=== PATIENT | male | born 1935 | race Caucasian/White ===

== ENCOUNTER → 2016-12-01 | Outpatient (CLI) | payer MEDICARE ==
--- NOTE | 2016-12-01 09:28 | US ---
EXAMINATION TYPE: US carotid duplex BILAT DATE OF EXAM: 12/01/2016 COMPARISON: NONE CLINICAL HISTORY: syncope R55.0. EXAM MEASUREMENTS: RIGHT: Peak Systolic Velocity (PSV) cm/sec ----- Right CCA: 74.7 ----- Right ICA: 66.9 ----- Right ECA: 108.3 ICA/CCA ratio: 0.9 RIGHT: End Diastole cm/sec ----- Right CCA: 10.1 ----- Right ICA: 15.4 ----- Right ECA: 6.0 LEFT: Peak Systolic Velocity (PSV) cm/sec ----- Left CCA: 69.5 ----- Left ICA: 100.9 ----- Left ECA: 109.6 ICA/CCA ratio: 1.5 LEFT: End Diastole cm/sec ----- Left CCA: 12.7 ----- Left ICA: 23.8 ----- Left ECA: 7.3 VERTEBRALS (direction of flow): Right Vertebral: Antegrade Left Vertebral: Antegrade IMPRESSION: Heterogeneous plaque bilaterally, mostly located within bulbs No significant stenosis se en Criteria for Assigning % of Stenosis / Diameter reduction (Estimation based on the indirect measurements of the internal carotid artery velocities (ICA PSV). 1. Normal (no stenosis)=ICA PSV < 125 cm/s: ratio < 2.0: ICA EDV<40 cm/s. 2. Less than 50% stenosis=ICA PSV < 125 cm/s: ratio < 2.0: ICA EDV<40 cm/s. 3. 50 to 69% stenosis=ICA PSV of 125 to 230 cm/s: ration 2.0 ? 4.0: ICA EDV 40-100 cm/s. 4. Greater than 70% stenosis to near occlusion= ICA PSV > 230 cm/s: ratio > 4.0: ICA EDV > 100 cm/s. 5. Near occlusion= ICA PSV velocities may be low or undetectable: variable ratio and ICA EDV. 6. Total occlusion=unable to detect flow.
== END | disposition home or self-care (01) ==
LOC: RADUSWWP 08:46
PROVIDERS: ATTEND Family Medicine
DX: I65.23 Occlusion and stenosis of bilateral carotid arteries (principal)
CPT/HCPCS: 93880

== ENCOUNTER → 2018-02-19 | Outpatient (CLI) | payer MEDICARE ==
--- NOTE | 2018-02-19 19:17 | US ---
EXAMINATION TYPE: US venous doppler duplex LE RT DATE OF EXAM: 02/19/2018 6:31 PM COMPARISON: NONE CLINICAL HISTORY: Pain In Limb M25.561. Right leg pain. SIDE PERFORMED: Right TECHNIQUE: The lower extremity deep venous system is examined utilizing real time linear array sonog josette with graded compression, doppler sonography and color-flow sonography. VESSELS IMAGED: External Iliac Vein (EIV) Common Femoral Vein Deep Femoral Vein Greater Saphenous Vein * Femoral Vein Popliteal Vein Small Saphenous Vein * Proximal Calf Veins (* superficial vessels) Right Leg: Negative for DVT No evidence of DVT right leg. IMPRESSION: Normal exam. No evidence of deep venous thrombosis in the right leg.
== END ==
LOC: RADUSMAIN 16:32
PROVIDERS: ATTEND Orthopaedic Surgery Sports Medicine
DX: M25.561 Pain in right knee (principal); M79.604 Pain in right leg

== ENCOUNTER 2021-09-02 16:02 | Emergency (ER) | payer MEDICARE ==
[2021-09-02 16:10] VITALS: PULSE 66; RESP 18; TEMP 98.6
[2021-09-02] MEDS ORDERED: SODIUM CHLORIDE 0.9% 500 ML 500 ML IV STA (16:22)
[2021-09-02 16:37] LABS: Basophils % (A) 1 %; Eosinophils # (A) 0.2 k/uL (0-0.7); Eosinophils % (A) 3 %; HCT 46.8 % (39.0-53.0); HGB 16.2 gm/dL (13.0-17.5); Lymphocytes % (A) 37 %; MCH 31.8 pg (25.0-35.0); MCHC 34.7 g/dL (31.0-37.0); MCV 91.5 fL (80.0-100.0); Monocytes # (A) 0.5 k/uL (0-1.0); Monocytes % (A) 6 %; Neutrophils # (A) 4.2 k/uL (1.3-7.7); Neutrophils % (A) 51 %; Platelet Count 233 k/uL (150-450); RBC 5.11 m/uL (4.30-5.90); RDW 13.5 % (11.5-15.5); WBC 8.3 k/uL (3.8-10.6)
[2021-09-02 16:48] LABS: Albumin 4.3 g/dL (3.5-5.0); Calcium 9.2 mg/dL (8.4-10.2); Potassium 3.9 mmol/L (3.5-5.1); Total Bilirubin 1.3 mg/dL (0.2-1.3); Total Protein 7.2 g/dL (6.3-8.2)
[2021-09-02 16:53] LABS: Prothrombin Time 10.7 sec (9.0-12.0)
--- NOTE | 2021-09-02 16:59 | CT ---
EXAMINATION TYPE: CT brain wo con for TPA CT DLP: 1093.8 mGycm, Automated exposure control for dose reduction was used. DATE OF EXAM: 09/02/2021 4:40 PM COMPARISON:Prior CT Brain from 05/31/2016. CLINICAL INDICATION:Male, 85 years old with history of Neuro deficit, acute, stroke suspected, Diffic ulty with speech. TECHNIQUE: Brain: Multiple axial CT images of the brain were obtained without IV contrast. FINDINGS: Brain: Extra-axial spaces: No abnormal extra-axial fluid collections. Ventricular system: Dilatation in proportion to cerebral atrophy. Cerebral parenchyma: New rounded area of high density in the left magdalena is not seen in 2016. Area soledad ures 8 x 4 x 6 mm No acute intraparenchymal hemorrhage or mass effect. The rodrigues-white junction is we ll differentiated. Scattered hypoattenuating areas are seen within the white matter. Cerebellum: Unremarkable. Mass effect: No evidence of midline shift. Intracranial vasculature: Atherosclerotic calcifications of the intracranial vessels. Soft tissues: Normal. Calvarium/osseous structures: No depressed skull fracture. Paranasal sinuses and mastoid air cells: Mild scattered paranasal sinus disease. Visualized orbits: Bilateral aphakia IMPRESSION: 1. New from 2016, hyperdense area within the left magdalena concerning for intraparenchymal hemorrhage. 2. Nonspecific white matter changes, likely secondary to chronic small vessel ischemic disease.
--- NOTE | 2021-09-02 17:16 | CT ---
EXAMINATION TYPE: CT angio head neck CT DLP: 560.2 mGycm, Automated exposure control for dose reduction was used. DATE OF EXAM: 09/02/2021 5:04 PM COMPARISON: CT brain same day. CLINICAL INDICATION:Male, 85 years old with history of Neuro deficit, acute, stroke suspected, Diffic ulty with speech. TECHNIQUE: Axially acquired helical CT angiogram of the head and neck was obtained with contrast util izing 6125 cc of Isovue-370 administered intravenously. Axial images are supplemented with 3D reconst ructions which were post-processed at an independent workstation. NASCET criteria used. FINDINGS: CTA HEAD: Redemonstration of hyperdense presumably blood products within the within the left magdalena. No evidence of mass effect, or midline shift. The ventricles, sulci, and cisterns are unremarkable. The visualized portions of the internal carotid arteries, middle cerebral arteries, anterior cerebral arteries, and posterior cerebral arteries are patent. The basilar and vertebral arteries are patent. CTA NECK: Right Carotid System: The common carotid artery and external carotid artery are patent. The carotid bifurcation demonstrate s atherosclerotic plaquing with less than 50% stenosis. The remaining portions of the internal caroti d artery demonstrate normal size without significant narrowing. Left Carotid System: The common carotid artery and external carotid artery are patent. The carotid bifurcation demonstrate s atherosclerotic plaquing with less than 50% stenosis. The remaining portions of the internal caroti d artery demonstrate normal size without significant narrowing. Vertebral arteries are patent without evidence hemodynamically significant stenosis. There is a three-vessel aortic arch. The origins of the great vessels are patent. No evidence of hemo dynamically significant stenosis. Sternotomy wires are present. There is vascular stent tubing noted anterior to the aorta without clear vessel. Cardiac conduction IMPRESSION: 1. No evidence of dissection of the cervical internal carotid arteries or vertebral arteries or any e vidence of significant stenosis at the carotid bifurcations. 2. No evidence of high-grade stenosis or intracranial aneurysm. 3. Left magdalena hyperdense area favored to represent intraparenchymal hemorrhage, new from 2016.
--- NOTE | 2021-09-02 17:57 | ED ---
General Adult HPI - General Chief complaint: Neuro Symptoms/Deficit Stated complaint: Slurred speech Time Seen by Provider: 09/02/21 16:14 Source: patient, RN notes reviewed, old records reviewed Mode of arrival: ambulatory Limitations: no limitations - History of Present Illness Initial comments: 85-year-old male presenting for evaluation of slurred speech. His symptoms began yesterday evening around dinnertime. He is presenting at approximately 4 PM. This represents 22-23 hour duration. Patient states have improved throughout the day today. He denies headache. He denies limb weakness or numbness. No chest pain. No fever. - Related Data Home Medications Medication Instructions Recorded Confirmed Finasteride 5 mg PO DAILY 08/13/15 09/02/21 Multivit-Min/FA/Lycopen/Lutein 1 tab PO DAILY 08/13/15 09/02/21 [Centrum Silver Tablet] Nitroglycerin Sl Tabs [Nitrostat] 0.4 mg SUBLINGUAL Q5M PRN 08/13/15 09/02/21 Rosuvastatin [Crestor] 20 mg PO HS 08/13/15 09/02/21 Tamsulosin HCl 0.4 mg PO HS 08/13/15 09/02/21 Clopidogrel [Plavix] 75 mg PO DAILY 05/31/16 09/02/21 Metoprolol Tartrate [Lopressor] 12.5 mg PO HS 05/31/16 09/02/21 Albuterol Inhaler [Ventolin Hfa 2 puff INHALATION RT-QID PRN 09/02/21 09/02/21 Inhaler] Diclofenac Sodium [Voltaren 4 gram TOPICAL QID PRN 09/02/21 09/02/21 Arthritis Pain 1% Gel] Donepezil [Aricept] 5 mg PO DAILY 09/02/21 09/02/21 Ipratropium [place] 0.06%Nasal 2 spr EA NOSTRIL TID PRN 09/02/21 09/02/21 [Atrovent Nasal 0.06%] Pantoprazole Sodium [Protonix] 40 mg PO HS 09/02/21 09/02/21 Allergies Allergy/AdvReac Type Severity Reaction Status Date / Time amoxicillin Allergy Rash/Hives Verified 09/02/21 17:53 Penicillins Allergy Rash/Hives Verified 09/02/21 17:53 Review of Systems ROS Statement: Those systems with pertinent positive or pertinent negative responses have been documented in the HPI. ROS Other: All systems not noted in ROS Statement are negative. Past Medical History Past Medical History: Coronary Artery Disease (CAD), Chest Pain / Angina, Dementia, GERD/Reflux, Hearing Disorder / Deafness, Hyperlipidemia, Hypertension, Osteoarthritis (OA), Prostate Disorder Additional Past Medical History / Comment(s): Other Hx: pericardial effusion, memry impairment mild, vertigo, tinnitis bilateral ears, sinus problems, hemorrhoids, peptic ulcer yrs ago, chronic low back pain and current sciatica to L side. History of Any Multi-Drug Resistant Organisms: None Reported Past Surgical History: Coronary Bypass/CABG, Heart Catheterization With Stent, Hernia Repair, Orthopedic Surgery, Tonsillectomy Additional Past Surgical History / Comment(s): 08-14-15 HEART CATH(FOUND OCCLUS CHANDU TO OM1 INTO OM2 AND DIAG.UNSUCCESSFULL ATTEMP TO STENT 07/17/12 CABG 4 vessel bypass(SIERRA TO LAD,SVG TO OM1 INTO OM2 AND SVG TO DIAG, 08/2012 PCI with stent per pt, right shoulder rotator cuff repair, R inguinal hernia repair, R foot bunionectomy, bilateral cataract removal with lens implants. atherectomy Past Anesthesia/Blood Transfusion Reactions: No Reported Reaction, Motion Sickness Date of Last Stent Placement:: 08/2012 Past Psychological History: No Psychological Hx Reported Smoking Status: Never smoker Past Alcohol Use History: Occasional Past Drug Use History: None Reported - Past Family History Father Family Medical History: No Reported History Additional Family Medical History / Comment(s): Pt states his father in his 80's and was a heavy smoker and heavy drinker. Mother Family Medical History: Osteoarthritis (OA), Pulmonary Embolus Additional Family Medical History / Comment(s): Mother had severe arthritis and of a PE at age 61yrs. General Exam Limitations: no limitations General appearance: alert, in no apparent distress Head exam: Present: atraumatic, normocephalic Eye exam: Present: normal appearance, PERRL ENT exam: Present: normal exam Neck exam: Present: normal inspection. Absent: tenderness, meningismus Respiratory exam: Present: normal lung sounds bilaterally. Absent: respiratory distress, wheezes Cardiovascular Exam: Present: regular rate, normal rhythm GI/Abdominal exam: Present: soft. Absent: distended, tenderness, guarding Extremities exam: Present: normal inspection, normal capillary refill. Absent: pedal edema, calf tenderness Neurological exam: Present: alert, oriented X3, CN II-XII intact, motor sensory deficit (. Mild dysarthria, NIH of 1 no ataxia, no limb weakness.) Psychiatric exam: Present: normal affect, normal mood Skin exam: Present: warm, dry, intact. Absent: cyanosis, diaphoretic Course Vital Signs 09/02/21 16:06 Temperature 98.6 F Pulse Rate 66 Respiratory 18 Rate Blood Pressure 171/76 O2 Sat by Pulse 98 Oximetry - Reevaluation(s) Reevaluation #1: 09/02/21 [address] Anderson covering for neurology as well as Dr. Rivers for stroke intervention. Patient is not a TPA or intervention candidate given the onset. He does have intrarenal hemorrhage in the magdalena and will require urgent MRI this is not available at this institution and recommendation is for transfer at this time. Patient will be transferred to [facility]. EKG Findings - EKG Comments: EKG Findings:: Sinus rhythm T-wave inversion in V2, no ST segment elevation. Rate of 60, MI interval 169, QRS duration 82, QTC 439 Medical Decision Making - Medical Decision Making 85-year-old male presenting for evaluation of dysarthria which is been present for approximately 22 hours. Patient not a TPA or thrombectomy candidate however he did receive CT of the brain without contrast and CT angiography. CT without contrast shows concern for hemorrhage in the left magdalena. CT angiography negative for aneurysm or occlusion but does also demonstrate this hyperdensity. I discussed this with Dr. Anderson who is covering for neurology at this institution as well as Dr. Silvestre rouse for stroke intervention. There was the possibility of admitting this patient to this institution if MRI was available but MRI is not currently available. At this time felt that the patient should be transferred to [facility] for close monitoring. Dr. Trinidad does recommend blood pressure control with a systolic pressure of less than 140. Laboratory testing is unremarkable. Patient is in sinus rhythm. Case discussed with Dr. Salazar at [facility]. Will accept transfer. - Lab Data Result diagrams: 09/02/21 16:28 09/02/21 16:28 Lab Results 09/02/21 09/02/21 09/02/21 Range/Units 16:28 16:28 16:28 WBC 8.3 (3.8-10.6) k/uL RBC 5.11 (4.30-5.90) m/uL Hgb 16.2 (13.0-17.5) gm/dL Hct 46.8 (39.0-53.0) % MCV 91.5 (80.0-100.0) fL MCH 31.8 (25.0-35.0) pg MCHC 34.7 (31.0-37.0) g/dL RDW 13.5 (11.5-15.5) % Plt Count 233 (150-450) k/uL MPV 9.0 Neutrophils % 51 % Lymphocytes % 37 % Monocytes % 6 % Eosinophils % 3 % Basophils % 1 % Neutrophils # 4.2 (1.3-7.7) k/uL Lymphocytes # 3.0 (1.0-4.8) k/uL Monocytes # 0.5 (0-1.0) k/uL Eosinophils # 0.2 (0-0.7) k/uL Basophils # 0.0 (0-0.2) k/uL PT 10.7 (9.0-12.0) sec INR 1.0 (<1.2) APTT 26.0 (22.0-30.0) sec Sodium 136 L (137-145) mmol/L Potassium 3.9 (3.5-5.1) mmol/L Chloride 101 (98-107) mmol/L Carbon Dioxide 27 (22-30) mmol/L Anion Gap 8 mmol/L BUN 11 (9-20) mg/dL Creatinine 0.92 (0.66-1.25) mg/dL Est GFR (CKD-EPI)AfAm 88 (>60 ml/min/1.73 sqM) Est GFR (CKD-EPI)NonAf 76 (>60 ml/min/1.73 sqM) Glucose 98 (74-99) mg/dL Calcium 9.2 (8.4-10.2) mg/dL Total Bilirubin 1.3 (0.2-1.3) mg/dL AST 28 (17-59) U/L ALT 23 (4-49) U/L Alkaline Phosphatase 50 (38-126) U/L Troponin I (0.000-0.034) ng/mL Total Protein 7.2 (6.3-8.2) g/dL Albumin 4.3 (3.5-5.0) g/dL 09/02/21 Range/Units 16:28 WBC (3.8-10.6) k/uL RBC (4.30-5.90) m/uL Hgb (13.0-17.5) gm/dL Hct (39.0-53.0) % MCV (80.0-100.0) fL MCH (25.0-35.0) pg MCHC (31.0-37.0) g/dL RDW (11.5-15.5) % Plt Count (150-450) k/uL MPV Neutrophils % % Lymphocytes % % Monocytes % % Eosinophils % % Basophils % % Neutrophils # (1.3-7.7) k/uL Lymphocytes # (1.0-4.8) k/uL Monocytes # (0-1.0) k/uL Eosinophils # (0-0.7) k/uL Basophils # (0-0.2) k/uL PT (9.0-12.0) sec INR (<1.2) APTT (22.0-30.0) sec Sodium (137-145) mmol/L Potassium (3.5-5.1) mmol/L Chloride (98-107) mmol/L Carbon Dioxide (22-30) mmol/L Anion Gap mmol/L BUN (9-20) mg/dL Creatinine (0.66-1.25) mg/dL Est GFR (CKD-EPI)AfAm (>60 ml/min/1.73 sqM) Est GFR (CKD-EPI)NonAf (>60 ml/min/1.73 sqM) Glucose (74-99) mg/dL Calcium (8.4-10.2) mg/dL Total Bilirubin (0.2-1.3) mg/dL AST (17-59) U/L ALT (4-49) U/L Alkaline Phosphatase (38-126) U/L Troponin I <0.012 (0.000-0.034) ng/mL Total Protein (6.3-8.2) g/dL Albumin (3.5-5.0) g/dL Critical Care Time Critical Care Time: Yes Total Critical Care Time: 35 Disposition Clinical Impression: Pontine hemorrhage Disposition: OTHER INSTITUTION NOT DEFINED Condition: Serious Is patient prescribed a controlled substance at d/c from ED?: No Referrals: Eduar Palumbo MD [Primary Care Provider] - 1-2 days Time of Disposition: 17:57 - Out of Hospital Transfer - Req. Specs Out of Hospital Transfer - Requested Specifics: Other Emergency Center (Transfer to [facility])
[2021-09-02] MEDS ORDERED: niCARdipine 20 MG in SODIUM CHLORIDE 0.9% 192 ML IV SCH (18:15)
--- NOTE | 2021-09-02 18:41 | XR ---
EXAMINATION TYPE: XR chest 2V DATE OF EXAM: 09/02/2021 5:40 PM COMPARISON:Chest radiographs from 05/31/2060 TECHNIQUE: XR chest 2V Frontal and lateral views of the chest. CLINICAL INDICATION:Male, 85 years old with history of altered mental status; FINDINGS: Lungs/Pleura: There is flattening of the diaphragm with increased lucency of the lungs. No evidence o f pneumothorax, pleural effusion or focal consolidation. Pulmonary vascularity: Unremarkable. Heart/mediastinum: Cardiomediastinal silhouette is unremarkable. Musculoskeletal: No acute osseous pathology. Midline sternotomy wires and surgical clips project over the mediastinum. IMPRESSION: 1. No acute cardiopulmonary disease process. 2. COPD changes.
[2021-09-02 19:02] VITALS: BP 146/75
== END 2021-09-02 19:00 | disposition other institution (70) ==
LOC: EC 16:02
DX: I61.3 Nontraumatic intracerebral hemorrhage in brain stem (principal); Z88.0 Allergy status to penicillin; I10 Essential (primary) hypertension; H91.90 Unspecified hearing loss, unspecified ear
CPT/HCPCS: 36415; 93005; 80053; 84484; 85025; 85610; 85730; 71046; 70496; 70450; 70498; 99284; 96365; Q9967

== ENCOUNTER → 2021-11-13 | Outpatient (CLI) | payer MEDICARE ==
--- NOTE | 2021-11-13 16:44 | MR ---
EXAMINATION TYPE: MR brain wo/w con DATE OF EXAM: 11/13/2021 COMPARISON: 10/16/2013 HISTORY: Nontraumatic subarachnoid hemorrhage, memory loss CONTRAST: Standard multiplanar, multisequence MRI departmental protocol images were obtained without contrast a nd with 10 mL intravenous Gadavist gadolinium contrast. There is some cerebral cortical atrophy. There is no mass effect or midline shift. No sign of intracr anial hemorrhage. Diffusion images show no acute infarct. There is periventricular white matter incre ased signal in a somewhat linear distribution around the frontal horns of the lateral ventricles. The re is centrum semiovale mildly increased signal. There is small areas of increased signal measuring 4 mm in the left and right magdalena. There is mild thinning of the corpus callosum. No evidence of a sellar mass. No orbital mass. The contrast images show no pathologic enhancement. There is normal enhancement of the venous sinuses . IMPRESSION: Pontine foci of increased signal consistent with microvascular ischemia or demyelinating disease. Unc hanged. Periventricular white matter signal changes also consistent with microvascular ischemia or de myelinating disease. Mild cerebral atrophy. No cortical infarct. There is some progression of the per iventricular white matter disease compared to old exam.
== END | disposition home or self-care (01) ==
LOC: RADMRIMAIN 14:14
PROVIDERS: ATTEND Psychiatry & Neurology Vascular Neurology
DX: I63.9 Cerebral infarction, unspecified (principal)
CPT/HCPCS: 70553; A9585

== ENCOUNTER 2022-05-19 21:37 | Emergency (ER) | payer MEDICARE ==
--- NOTE | 2022-05-19 21:44 | ED ---
Recheck HPI - General Stated Complaint: Hypertension Time Seen by Provider: 05/19/22 21:40 Source: RN notes reviewed, old records reviewed Limitations: no limitations - History of Present Illness Initial Comments: This is an 86-year-old male DF for evaluation. Patient presents with weakness and severely elevated blood pressure. No headache no chest pain no abdominal pain. MD Complaint: abnormal lab -: unknown Returns Today for: Called Because of Abnormal Lab/Test, persistent/worsening pain related to initial visit Symptoms Since Prior Visit: no new symptoms, worsening pain Context: planned re-check Associated Symptoms: none Treatments Prior to Arrival: other (0) - Related Data Home Medications Medication Instructions Recorded Confirmed Finasteride 5 mg PO DAILY 08/13/15 09/02/21 Multivit-Min/FA/Lycopen/Lutein 1 tab PO DAILY 08/13/15 09/02/21 [Centrum Silver Tablet] Nitroglycerin Sl Tabs [Nitrostat] 0.4 mg SUBLINGUAL Q5M PRN 08/13/15 09/02/21 Rosuvastatin [Crestor] 20 mg PO HS 08/13/15 09/02/21 Tamsulosin HCl 0.4 mg PO HS 08/13/15 09/02/21 Clopidogrel [Plavix] 75 mg PO DAILY 05/31/16 09/02/21 Metoprolol Tartrate [Lopressor] 12.5 mg PO HS 05/31/16 09/02/21 Albuterol Inhaler [Ventolin Hfa 2 puff INHALATION RT-QID PRN 09/02/21 09/02/21 Inhaler] Diclofenac Sodium [Voltaren 4 gram TOPICAL QID PRN 09/02/21 09/02/21 Arthritis Pain 1% Gel] Donepezil [Aricept] 5 mg PO DAILY 09/02/21 09/02/21 Ipratropium [place] 0.06%Nasal 2 spr EA NOSTRIL TID PRN 09/02/21 09/02/21 [Atrovent Nasal 0.06%] Pantoprazole Sodium [Protonix] 40 mg PO HS 09/02/21 09/02/21 Allergies Allergy/AdvReac Type Severity Reaction Status Date / Time amoxicillin Allergy Rash/Hives Verified 05/19/22 22:15 Penicillins Allergy Rash/Hives Verified 05/19/22 22:15 Review of Systems ROS Statement: Those systems with pertinent positive or pertinent negative responses have been documented in the HPI. ROS Other: All systems not noted in ROS Statement are negative. Past Medical History Past Medical History: Coronary Artery Disease (CAD), Chest Pain / Angina, Dementia, GERD/Reflux, Hearing Disorder / Deafness, Hyperlipidemia, Hy pertension, Osteoarthritis (OA), Prostate Disorder Additional Past Medical History / Comment(s): Other Hx: pericardial effusion, memry impairment mild, vertigo, tinnitis bilateral ears, sinus problems, hemorrhoids, peptic ulcer yrs ago, chronic low back pain and current sciatica to L side. History of Any Multi-Drug Resistant Organisms: None Reported Past Surgical History: Coronary Bypass/CABG, Heart Catheterization With Stent, Hernia Repair, Orthopedic Surgery, Tonsillectomy Additional Past Surgical History / Comment(s): 08-14-15 HEART CATH(FOUND OCCLUSSION TO OM1 INTO OM2 AND DIAG.UNSUCCESSFULL ATTEMP TO STENT 07/17/12 CABG 4 vessel bypass(SIERRA TO LAD,SVG TO OM1 INTO OM2 AND SVG TO DIAG, 08/2012 PCI with stent per pt, right shoulder rotator cuff repair, R inguinal hernia repair, R foot bunionectomy, bilateral cataract removal with lens implants. atherectomy Past Anesthesia/Blood Transfusion Reactions: No Reported Reaction, Motion Sickness Date of Last Stent Placement:: 08/2012 Past Psychological History: No Psychological Hx Reported Smoking Status: Never smoker Past Alcohol Use History: Occasional Past Drug Use History: None Reported - Past Family History Father Family Medical History: No Reported History Additional Family Medical History / Comment(s): Pt states his father in his 80's and was a heavy smoker and heavy drinker. Mother Family Medical History: Osteoarthritis (OA), Pulmonary Embolus Additional Family Medical History / Comment(s): Mother had severe arthritis and of a PE at age 61yrs. General Exam General appearance: alert, in no apparent distress Head exam: Present: atraumatic, normocephalic, normal inspection Eye exam: Present: normal appearance, PERRL, EOMI. Absent: scleral icterus, conjunctival injection, periorbital swelling ENT exam: Present: normal exam, mucous membranes moist Neck exam: Present: normal inspection. Absent: tenderness, meningismus, lymphadenopathy Respiratory exam: Present: normal lung sounds bilaterally. Absent: respiratory distress, wheezes, rales, rhonchi, stridor Cardiovascular Exam: Present: regular rate, normal rhythm, normal heart sounds. Absent: systolic murmur, diastolic murmur, rubs, gallop, clicks GI/Abdominal exam: Present: soft, normal bowel sounds. Absent: distended, tenderness, guarding, rebound, rigid Extremities exam: Present: normal inspection, full ROM, normal capillary refill. Absent: tenderness, pedal edema, joint swelling, calf tenderness Back exam: Present: normal inspection Neurological exam: Present: alert, oriented X3, CN II-XII intact Psychiatric exam: Present: normal affect, normal mood Skin exam: Present: warm, dry, intact, normal color. Absent: rash Course Vital Signs 05/19/22 05/20/22 22:15 00:12 Temperature 98.6 F Pulse Rate 74 61 Respiratory 15 15 Rate Blood Pressure 151/74 146/72 O2 Sat by Pulse 100 100 Oximetry - Reevaluation(s) Reevaluation #1: 05/19/22 Medical records reviewed Patient symptoms improved here in the ER Patient informed of results and questions answered Medical Decision Making - Medical Decision Making 86 male to the emergency department for evaluation patient presents today for evaluation of elevated blood pressure. Patient's blood pressures improved here in the ER is in no distress and can be discharged home - Lab Data Result diagrams: 05/19/22 22:33 05/19/22 22:33 Lab Results 05/19/22 05/19/22 05/19/22 Range/Units 22:33 22:33 22:33 WBC 8.3 (3.8-10.6) k/uL RBC 4.95 (4.30-5.90) m/uL Hgb 15.5 (13.0-17.5) gm/dL Hct 44.4 (39.0-53.0) % MCV 89.7 (80.0-100.0) fL MCH 31.4 (25.0-35.0) pg MCHC 35.0 (31.0-37.0) g/dL RDW 12.7 (11.5-15.5) % Plt Count 232 (150-450) k/uL MPV 9.4 Neutrophils % 52 % Lymphocytes % 36 % Monocytes % 7 % Eosinophils % 2 % Basophils % 0 % Neutrophils # 4.3 (1.3-7.7) k/uL Lymphocytes # 3.0 (1.0-4.8) k/uL Monocytes # 0.6 (0-1.0) k/uL Eosinophils # 0.1 (0-0.7) k/uL Basophils # 0.0 (0-0.2) k/uL Sodium 135 L (137-145) mmol/L Potassium 4.2 (3.5-5.1) mmol/L Chloride 101 (98-107) mmol/L Carbon Dioxide 26 (22-30) mmol/L Anion Gap 8 mmol/L BUN 17 (9-20) mg/dL Creatinine 0.96 (0.66-1.25) mg/dL Est GFR (CKD-EPI)AfAm 83 (>60 ml/min/1.73 sqM) Est GFR (CKD-EPI)NonAf 72 (>60 ml/min/1.73 sqM) Glucose 92 (74-99) mg/dL Calcium 9.0 (8.4-10.2) mg/dL Phosphorus 3.9 (2.5-4.5) mg/dL Magnesium 1.9 (1.6-2.3) mg/dL Total Bilirubin 1.0 (0.2-1.3) mg/dL AST 22 (17-59) U/L ALT 18 (4-49) U/L Alkaline Phosphatase 47 (38-126) U/L Troponin I <0.012 (0.000-0.034) ng/mL NT-Pro-B Natriuret Pep pg/mL Total Protein 6.6 (6.3-8.2) g/dL Albumin 4.3 (3.5-5.0) g/dL Urine Color Urine Appearance (Clear) Urine pH (5.0-8.0) Ur Specific [place] (1.001-1.035) Urine Protein (Negative) Urine Glucose (UA) (Negative) Urine Ketones (Negative) Urine Blood (Negative) Urine Nitrite (Negative) Urine Bilirubin (Negative) Urine Urobilinogen (<2.0) mg/dL Ur Leukocyte Esterase (Negative) 05/19/22 05/20/22 Range/Units 22:33 00:12 WBC (3.8-10.6) k/uL RBC (4.30-5.90) m/uL Hgb (13.0-17.5) gm/dL Hct (39.0-53.0) % MCV (80.0-100.0) fL MCH (25.0-35.0) pg MCHC (31.0-37.0) g/dL RDW (11.5-15.5) % Plt Count (150-450) k/uL MPV Neutrophils % % Lymphocytes % % Monocytes % % Eosinophils % % Basophils % % Neutrophils # (1.3-7.7) k/uL Lymphocytes # (1.0-4.8) k/uL Monocytes # (0-1.0) k/uL Eosinophils # (0-0.7) k/uL Basophils # (0-0.2) k/uL Sodium (137-145) mmol/L Potassium (3.5-5.1) mmol/L Chloride (98-107) mmol/L Carbon Dioxide (22-30) mmol/L Anion Gap mmol/L BUN (9-20) mg/dL Creatinine (0.66-1.25) mg/dL Est GFR (CKD-EPI)AfAm (>60 ml/min/1.73 sqM) Est GFR (CKD-EPI)NonAf (>60 ml/min/1.73 sqM) Glucose (74-99) mg/dL Calcium (8.4-10.2) mg/dL Phosphorus (2.5-4.5) mg/dL Magnesium (1.6-2.3) mg/dL Total Bilirubin (0.2-1.3) mg/dL AST (17-59) U/L ALT (4-49) U/L Alkaline Phosphatase (38-126) U/L Troponin I (0.000-0.034) ng/mL NT-Pro-B Natriuret Pep 304 pg/mL Total Protein (6.3-8.2) g/dL Albumin (3.5-5.0) g/dL Urine Color Light Yellow Urine Appearance Clear (Clear) Urine pH 6.5 (5.0-8.0) Ur Specific [place] 1.013 (1.001-1.035) Urine Protein Negative (Negative) Urine Glucose (UA) Negative (Negative) Urine Ketones Negative (Negative) Urine Blood Negative (Negative) Urine Nitrite Negative (Negative) Urine Bilirubin Negative (Negative) Urine Urobilinogen <2.0 (<2.0) mg/dL Ur Leukocyte Esterase Negative (Negative) - EKG Data -: EKG Interpreted by Me (EKG sinus bradycardia 53 AL 189 QRS 89 QTc 420) - Radiology Data Radiology results: report reviewed (CT brain is negative for acute disease), image reviewed Disposition Clinical Impression: Dehydration, Weakness Disposition: HOME SELF-CARE Condition: Fair Instructions (If sedation given, give patient instructions): Weakness (ED) Is patient prescribed a controlled substance at d/c from ED?: No Referrals: Eduar Palumbo MD [Primary Care Provider] - 1-2 days Time of Disposition: 00:30
[2022-05-19 22:19] VITALS: RESP 15; TEMP 98.6
[2022-05-19 22:56] LABS: Basophils % (A) 0 %; Eosinophils # (A) 0.1 k/uL (0-0.7); Eosinophils % (A) 2 %; HCT 44.4 % (39.0-53.0); HGB 15.5 gm/dL (13.0-17.5); Lymphocytes % (A) 36 %; MCH 31.4 pg (25.0-35.0); MCV 89.7 fL (80.0-100.0); Mean Platelet Volume 9.4; Monocytes # (A) 0.6 k/uL (0-1.0); Monocytes % (A) 7 %; Neutrophils # (A) 4.3 k/uL (1.3-7.7); Neutrophils % (A) 52 %; Platelet Count 232 k/uL (150-450); RBC 4.95 m/uL (4.30-5.90); RDW 12.7 % (11.5-15.5); WBC 8.3 k/uL (3.8-10.6)
--- NOTE | 2022-05-19 23:06 | CT ---
EXAMINATION TYPE: CT brain wo con DATE OF EXAM: 05/19/2022 COMPARISON: 09/02/2021 HISTORY: weakness and dizziness CT DLP: 1153.4 mGycm Automated exposure control for dose reduction was used. There is cerebral cortical atrophy. There is no mass effect or midline shift. No sign of intracranial hemorrhage. There is minimal hypodensity in the periventricular white matter. Calvarium is intact. T he skull base is intact. IMPRESSION: Cerebral atrophy. No acute intracranial abnormality. Mild microvascular ischemia. No change compared to old exams
[2022-05-19 23:08] LABS: Albumin 4.3 g/dL (3.5-5.0); Magnesium 1.9 mg/dL (1.6-2.3); Phosphorus 3.9 mg/dL (2.5-4.5); Potassium 4.2 mmol/L (3.5-5.1); Total Protein 6.6 g/dL (6.3-8.2)
[2022-05-20 00:14] VITALS: BP 146/72; PULSE 61
[2022-05-20 00:16] LABS: Appearance,Urine Clear (Clear); Bilirubin,Urine Negative (Negative); Blood,Urine Negative (Negative); Color,Urine Light Yellow; Glucose,Urine (UA) Negative (Negative); Ketones,Urine Negative (Negative); Leukocyte Esterase,Urine Negative (Negative); Nitrite,Urine Negative (Negative); PH, Urine 6.5 (5.0-8.0); Protein,Urine Negative (Negative); Specific Gravity,Urine 1.013 (1.001-1.035); Urobilinogen,Urine <2.0 mg/dL (<2.0)
== END 2022-05-20 00:52 | disposition home or self-care (01) ==
LOC: EC 21:37
DX: R53.1 Weakness (principal); E86.0 Dehydration; I25.10 Atherosclerotic heart disease of native coronary artery without angina pectoris; I10 Essential (primary) hypertension; M19.90 Unspecified osteoarthritis, unspecified site; E78.5 Hyperlipidemia, unspecified; Z88.0 Allergy status to penicillin; Z79.899 Other long term (current) drug therapy
CPT/HCPCS: 36415; 70450; 80053; 81003; 83735; 83880; 84100; 84484; 85025; 93005; 99284

== ENCOUNTER → 2022-07-25 | Outpatient (CLI) | payer MEDICARE ==
--- NOTE | 2022-07-27 11:54 | MR ---
EXAMINATION TYPE: MR lumbar spine wo con DATE OF EXAM: 07/25/2022 8:01 AM COMPARISON: 10/03/2011. CLINICAL INDICATION:Male, 86 years old with history of M54.50 lumbar pain; TECHNIQUE: Multi planar, multi sequence imaging was performed utilizing: T1-weighted, T2-weighted, a nd turbo inversion recovery imaging of the lumbar spine. IV Contrast: None. FINDINGS: Alignment: The lumbar vertebral bodies have preserved heights. Grade 1 anterolisthesis of L4 and L5 Cord: The conus medullaris and the distal spinal cord appear unremarkable with regards to their signa l intensity and morphology. Bones/Discs: Scattered Modic endplate changes most pronounced at L1 anteriorly and inferiorly. No abn ormal bony edema on inversion recovery sequences. Multilevel degenerative disc disease is noted and most pronounced at the L4-L5. Multilevel disc desiccation is present. T12-L1: No evidence of significant spinal canal stenosis or neural foraminal stenosis. L1-L2: No evidence of significant spinal canal stenosis or neural foraminal stenosis. L2-L3: No evidence of significant spinal canal stenosis. Facet joint arthropathy mild bilateral neura l foraminal stenosis. L3-L4: Disc bulge and facet joint arthropathy result in mild spinal canal and mild bilateral neural f oraminal stenosis. L4-L5: Disc uncovering from grade 1 anterolisthesis and facet joint arthropathy with mild spinal diana l stenosis and mild right and moderate to severe left neural foraminal stenosis. L5-S1: The disc is rounded posterior morphology without significant spinal canal stenosis. Facet join t arthropathy with mild neural foraminal stenosis. Other findings: None. IMPRESSION: 1. No definitive evidence of disc herniation or significant spinal canal stenosis. 2. Mild progression of disc degeneration with associated osteoarthritic changes, now with L4-L5 mode rate to severe left neural foraminal stenosis.
== END | disposition home or self-care (01) ==
LOC: RADMRIMAIN 06:28
PROVIDERS: ATTEND Family Medicine
DX: M51.36 Other intervertebral disc degeneration, lumbar region (principal); M47.816 Spondylosis without myelopathy or radiculopathy, lumbar region; M99.73 Connective tissue and disc stenosis of intervertebral foramina of lumbar region
CPT/HCPCS: 72148

== ENCOUNTER → 2023-01-23 | Outpatient (CLI) | payer MEDICARE ==
[2023-01-23 11:41] LABS: ACTH 35.7 pg/mL (0.00-45.99)
[2023-01-24 12:50] LABS: Alt. alternata IgE Class CLASS 0; Alternaria alternata IgE <0.10 kU/L (<0.10); Asperg. fumagatus IgE <0.10 kU/L (<0.10); Asperg. fumagatus IgE Class CLASS 0; Bermuda Grass IgE <0.10 kU/L (<0.10); Birch(Com.Silvr) IgE <0.10 kU/L (<0.10); Birch(Com.Silvr) IgE Class CLASS 0; Cat Epith & Dander IgE <0.10 kU/L (<0.10); Cat Epith & Dander IgE Class CLASS 0; Clad herbarum IgE <0.10 kU/L (<0.10); Clad herbarum IgE Class CLASS 0; Cockroach IgE <0.10 kU/L (<0.10); Cottonwood IgE <0.10 kU/L (<0.10); Dermato. Pteronyssinus Class CLASS 0; Dermato. Pteronyssinus IgE <0.10 kU/L (<0.10); Dermato. farinae IgE <0.10 kU/L (<0.10); Dermato. farinae IgE Class CLASS 0; Dog Dander IgE <0.10 kU/L (<0.10); Elm IgE <0.10 kU/L (<0.10); IgE (Allergen) 20.1 IU/mL (<114.0); Maple (Box Elder) IgE <0.10 kU/L (<0.10); Maple (Box Elder) IgE Class CLASS 0; Mountain Cedar IgE <0.10 kU/L (<0.10); Mountain Cedar IgE Class CLASS 0; Mouse Urine IgE Class CLASS 0; Mouse Urine Proteins,IgE <0.10 kU/L (0.10); Nettle IgE <0.10 kU/L (<0.10); Nettle IgE Class CLASS 0; Oak IgE <0.10 kU/L (<0.10); Penicillium chrysogenum IgE <0.10 kU/L (<0.10); Penicillium chrysogenum IgE Cl CLASS 0; Rough Marshelder IgE <0.10 kU/L (<0.10); Rough Marshelder IgE Class CLASS 0; Timothy Grass IgE <0.10 kU/L (<0.10); Timothy Grass IgE Class CLASS 0; White Ash IgE Class CLASS 0
[2023-01-26 21:20] LABS: Immunoglobulin E 16.6 IU/mL (0.00-114.00)
== END | disposition home or self-care (01) ==
LOC: LABWHC1 08:07
PROVIDERS: ATTEND Family Medicine
DX: E27.40 Unspecified adrenocortical insufficiency (principal); J44.9 Chronic obstructive pulmonary disease, unspecified; R53.1 Weakness
CPT/HCPCS: 36415; 82024; 82150; 82533; 82626; 82785; 84140; 84260; 86003

== ENCOUNTER → 2023-02-07 | Outpatient (CLI) | payer MEDICARE | LOC: CPPFTMAIN 16:28 | PROVIDERS: ATTEND Internal Medicine Sleep Medicine | DX: J44.9 Chronic obstructive pulmonary disease, unspecified (principal); Z88.0 Allergy status to penicillin; Z79.51 Long term (current) use of inhaled steroids; Z87.891 Personal history of nicotine dependence | CPT/HCPCS: 94060; 94726; 94729 ==

== ENCOUNTER → 2023-11-20 | Outpatient (CLI) | payer MEDICARE ==
--- NOTE | 2023-11-20 13:10 | FL ---
EXAMINATION TYPE: FL barium swallow DATE OF EXAM: 11/20/2023 COMPARISON: None HISTORY: Dysphagia TECHNIQUE: A double air contrast UGI study is performed. FINDINGS: Fluoroscopy time: 7 seconds DAP 70.65. IMAGES: 145. Esophagus dilates to normal caliber and has a normal contour the gastroesophageal junction. Gastroeso phageal junction opens to normal caliber. No intraluminal or extramural defects are evident. There is a secondary contraction in the upright drinking position compatible some mild presbyesophagus. In th e horizontal drinking position there is complete stripping of the esophageal bolus. IMPRESSION: 1. Minimal presbyesophagus. 2. No acute esophageal abnormality.
== END | disposition home or self-care (01) ==
LOC: RADUSWWP 09:59
PROVIDERS: ATTEND Otolaryngology
DX: K22.89 Other specified disease of esophagus (principal); R13.19 Other dysphagia
CPT/HCPCS: 74220

== ENCOUNTER 2024-04-17 10:30 | Inpatient (IN) | payer MEDICARE ==
[2024-04-17 11:04] LABS: Glucose,Whole Blood 117 mg/dL (70-110)
[2024-04-17 11:22] LABS: Basophils # (A) 0.1 k/uL (0-0.2); Basophils % (A) 1 %; Eosinophils # (A) 0.3 k/uL (0-0.7); Eosinophils % (A) 3 %; HCT 44.1 % (39.0-53.0); HGB 15.1 gm/dL (13.0-17.5); Lymphocytes # (A) 2.7 k/uL (1.0-4.8); Lymphocytes % (A) 30 %; MCH 31.8 pg (25.0-35.0); MCHC 34.3 g/dL (31.0-37.0); MCV 92.7 fL (80.0-100.0); Mean Platelet Volume 8.7; Monocytes # (A) 0.5 k/uL (0-1.0); Monocytes % (A) 6 %; Neutrophils # (A) 5.1 k/uL (1.3-7.7); Neutrophils % (A) 58 %; Platelet Count 235 k/uL (150-450); RBC 4.76 m/uL (4.30-5.90); RDW 12.8 % (11.5-15.5); WBC 8.8 k/uL (3.8-10.6)
[2024-04-17] MEDS: SODIUM CHLORIDE 0.9% 1,000 ML IV STA (11:34)
[2024-04-17 11:38] LABS: ALT 18 U/L (4-49); African American GFR (CKD) >90 (>60 ml/min/1.73 sqM); Anion Gap 8 mmol/L; Blood Urea Nitrogen 13 mg/dL (9-20); Calcium 9.1 mg/dL (8.4-10.2); Carbon Dioxide 25 mmol/L (22-30); Chloride 103 mmol/L (98-107); Creatine Kinase 65 U/L (55-170); Glucose 123 mg/dL (74-99); Non-African American GFR(CKD) 85 (>60 ml/min/1.73 sqM); Sodium 136 mmol/L (137-145); Total Bilirubin 2.3 mg/dL (0.2-1.3)
[2024-04-17 11:43] LABS: AST 38 U/L (17-59); Albumin 4.2 g/dL (3.5-5.0); Alkaline Phosphatase 28 U/L (38-126); Total Protein 6.6 g/dL (6.3-8.2)
--- NOTE | 2024-04-17 11:44 | CT ---
EXAMINATION TYPE: CODE STROKE: CT brain wo contr CT DLP: 1151 mGycm, Automated exposure control for dose reduction was used. DATE OF EXAM: 04/17/2024 11:34 AM COMPARISON: Prior CT Brain from 05/19/2022, MR brain 11/13/2021. CLINICAL INDICATION:Male, 88 years old with history of Neuro deficit, acute, stroke suspected, CODE S TROKE TECHNIQUE: Brain: Multiple axial CT images of the brain were obtained without IV contrast. . Coronal and sagitta l reformats reviewed. FINDINGS: Brain: Extra-axial spaces: No abnormal extra-axial fluid collections. Ventricular system: Within normal limits Cerebral parenchyma: Cerebral atrophy. No acute intraparenchymal hemorrhage or mass effect. The rodrigues -white junction is well differentiated. Scattered hypoattenuating areas are seen within the white mat ter. Cerebellum: Unremarkable. Mass effect: No evidence of midline shift. Intracranial vasculature: unremarkable Soft tissues: Normal. Calvarium/osseous structures: No depressed skull fracture. Paranasal sinuses and mastoid air cells: Mastoid air cells are clear. Mucosal thickening of the left posterior ethmoid sinus. Remaining paranasal sinuses are clear. Visualized orbits: Bilateral aphakia. Left scleral calcification. IMPRESSION: 1. No acute intracranial process. 2. Nonspecific white matter changes, likely secondary to chronic small vessel ischemic disease. [facility], , 04/17/2024 11:41 AM
[2024-04-17 12:05] LABS: Partial Thromboplastin Time 25.1 sec (22.0-30.0); Prothrombin Time 11.3 sec (10.0-12.5)
--- NOTE | 2024-04-17 12:07 | CT ---
EXAMINATION TYPE: CT angio head neck CT DLP: 579.7 mGycm, Automated exposure control for dose reduction was used. DATE OF EXAM: 04/17/2024 11:56 AM COMPARISON: CTA head and Neck 09/02/2021. CLINICAL INDICATION:Male, 88 years old with history of Neuro deficit, acute, stroke suspected; Jacque CALABRESE STROKE TECHNIQUE: Axially acquired helical CT angiogram of the head and neck was obtained with contrast util izing 75 cc of Isovue-370 administered intravenously. Axial images are supplemented with 3D reconstru ctions which were post-processed at an independent workstation. NASCET criteria used. FINDINGS: CTA HEAD: No evidence of acute intracranial hemorrhage, mass effect, or midline shift. The ventricles, sulci, a nd cisterns are unremarkable. The visualized portions of the internal carotid arteries, middle cerebral arteries, anterior cerebral arteries, and posterior cerebral arteries are patent. The basilar and vertebral arteries are patent. Mild atherosclerotic calcification of the left vertebr al artery V4 segment. CTA NECK: Right Carotid System: The common carotid artery and external carotid artery are patent. The carotid bifurcation demonstrate s atherosclerotic plaquing with less than 50% stenosis. The remaining portions of the internal caroti d artery demonstrate normal size without significant narrowing. Left Carotid System: The common carotid artery and external carotid artery are patent. The carotid bifurcation demonstrate s atherosclerotic plaquing with less than 50% stenosis. The remaining portions of the internal caroti d artery demonstrate normal size without significant narrowing. Vertebral arteries are patent without evidence hemodynamically significant stenosis. Left vertebral a rtery is dominant. There is a bovine aortic arch. The origins of the great vessels are patent. No evidence of hemodynami madalyn significant stenosis. Post-CABG changes. Sternotomy wires are present. Degenerative changes of the cervical spine with reversal of the normal cervical lordosis. IMPRESSION: 1. No evidence of dissection of the cervical internal carotid arteries or vertebral arteries. Less th an 50% stenosis at the origins of the bilateral internal carotid arteries secondary to calcified plaq ue. 2. No evidence of high-grade stenosis or intracranial aneurysm. [facility], , 04/17/2024 12:05 PM
--- NOTE | 2024-04-17 12:09 | XR ---
EXAMINATION TYPE: XR chest 2V DATE OF EXAM: 04/17/2024 12:05 PM COMPARISON: Chest radiographs from 09/11/2023 TECHNIQUE: XR chest 2V Frontal and lateral views of the chest. CLINICAL INDICATION:Male, 88 years old with history of altered mental status; FINDINGS: Lungs/Pleura: There is no evidence of pleural effusion, focal consolidation, or pneumothorax. Chroni c senescent parenchyma change. Pulmonary vascularity: Unremarkable. Heart/mediastinum: Cardiomediastinal silhouette is unremarkable. Post-CABG change. Musculoskeletal: No acute osseous pathology. Midline sternotomy wires are noted and stable. IMPRESSION: No acute cardiopulmonary disease/process. No significant change from prior exam. [facility], , 04/17/2024 12:07 PM
--- NOTE | 2024-04-17 13:06 | ED ---
General Adult HPI - General Chief complaint: Neuro Symptoms/Deficit Stated complaint: Possible stroke Time Seen by Provider: 04/17/24 10:59 Source: patient, RN notes reviewed, old records reviewed Mode of arrival: ambulatory Limitations: no limitations - History of Present Illness Initial comments: Patient is an 88-year-old male who presents emergency department for strokelike symptoms. Last known well was 5:30 PM last night. Did not talk again until approximately 10 PM when he attempted to speak he was unable to talk. Was mute. Slowly improved over time however he noticed his speech was off and he was having a hard time finding words. He went to sleep and awoke this morning was still having some mild symptoms. Mostly slurred speech this morning. Presents for further evaluation of concern for stroke. 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 Takes aspirin and Plavix at home. Denies any trauma. Past medical history of CAD, dementia, hypertension, hyperlipidemia. Presents with family over concern for possible stroke. - Related Data Home Medications Medication Instructions Recorded Confirmed Finasteride 5 mg PO DAILY 08/13/15 04/17/24 Multivit-Min/FA/Lycopen/Lutein 1 tab PO DAILY 08/13/15 04/17/24 [Centrum Silver Tablet] Nitroglycerin Sl Tabs [Nitrostat] 0.4 mg SUBLINGUAL Q5M PRN 08/13/15 04/17/24 Tamsulosin HCl 0.8 mg PO HS 08/13/15 04/17/24 Clopidogrel [Plavix] 75 mg PO DAILY 05/31/16 04/17/24 Metoprolol Tartrate [Lopressor] 12.5 mg PO BID 05/31/16 04/17/24 Donepezil [Aricept] 5 mg PO HS 09/02/21 04/17/24 Pantoprazole Sodium [Protonix] 40 mg PO DAILY 09/02/21 04/17/24 Acetaminophen Tab [Tylenol Tab] 500 mg PO Q4H PRN 04/17/24 04/17/24 Acetylcysteine [Nac] 500 mg PO DAILY 04/17/24 04/17/24 Azelastine HCl [Astepro] 1 mcg EA NOSTRIL QID PRN 04/17/24 04/17/24 Celecoxib [CeleBREX] 200 mg PO DAILY 04/17/24 04/17/24 DULoxetine HCL [Cymbalta] 20 mg PO DAILY 04/17/24 04/17/24 Fluticasone/Vilanterol [Breo 1 puff INHALATION RT-DAILY 04/17/24 04/17/24 Ellipta 200-25 Mcg Inhaler] Losartan [Cozaar] 25 mg PO DAILY 04/17/24 04/17/24 Meclizine [Antivert] 12.5 mg PO BID PRN 04/17/24 04/17/24 Meloxicam [Mobic] 15 mg PO DAILY PRN 04/17/24 04/17/24 Montelukast [Singulair] 10 mg PO HS 04/17/24 04/17/24 Rosuvastatin [Crestor] 10 mg PO HS 04/17/24 04/17/24 Ubidecarenone [Co Q-10] 400 mg PO DAILY 04/17/24 04/17/24 Allergies Allergy/AdvReac Type Severity Reaction Status Date / Time amoxicillin Allergy Rash/Hives Verified 04/17/24 12:23 Penicillins Allergy Rash/Hives Verified 04/17/24 12:23 Review of Systems ROS Statement: Those systems with pertinent positive or pertinent negative responses have been documented in the HPI. Review of Systems: CONST: Denies fever EYES: Denies blurry vision ENT: Denies nasal congestion C/V: Denies Chest pain RESP: Denies shortness of breath GI: Denies abdominal pain : Denies dysuria SKIN: Denies rash. MSK: Denies joint pain. NEURO: Denies headache ROS Other: All systems not noted in ROS Statement are negative. Past Medical History Past Medical History: Coronary Artery Disease (CAD), Chest Pain / Angina, Dementia, GERD/Reflux, Hearing Disorder / Deafness, Hyperlipidemia, Hypertension, Osteoarthritis (OA), Prostate Disorder Additional Past Medical History / Comment(s): Other Hx: pericardial effusion, memry impairment mild, vertigo, tinnitis bilateral ears, sinus problems, hemorrhoids, peptic ulcer yrs ago, chronic low back pain and current sciatica to L side. History of Any Multi-Drug Resistant Organisms: None Reported Past Surgical History: Coronary Bypass/CABG, Heart Catheterization With Stent, Hernia Repair, Orthopedic Surgery, Tonsillectomy Additional Past Surgical History / Comment(s): 08-14-15 HEART CATH(FOUND OCCLUSSION TO OM1 INTO OM2 AND DIAG.UNSUCCESSFULL ATTEMP TO STENT 07/17/12 CABG 4 vessel bypass(SIERRA TO LAD,SVG TO OM1 INTO OM2 AND SVG TO DIAG, 08/2012 PCI with stent per pt, right shoulder rotator cuff repair, R inguinal hernia repair, R foot bunionectomy, bilateral cataract removal with lens implants. atherectomy Past Anesthesia/Blood Transfusion Reactions: No Reported Reaction, Motion Sickness Date of Last Stent Placement:: 08/2012 Past Psychological History: No Psychological Hx Reported Smoking Status: Never smoker Past Alcohol Use History: Occasional Past Drug Use History: None Reported - Past Family History Father Family Medical History: No Reported History Additional Family Medical History / Comment(s): Pt states his father in his 80's and was a heavy smoker and heavy drinker. Mother Family Medical History: Osteoarthritis (OA), Pulmonary Embolus Additional Family Medical History / Comment(s): Mother had severe arthritis and of a PE at age 61yrs. General Exam - General Exam Comments Initial Comments: General: Appears in no acute distress. HEAD: Normal with no signs of head trauma. EYES: PERRLA, EOMI, conjunctiva normal, no discharge. Pupils are 2 mm and equal bilaterally. ENT: Hearing grossly intact, normal oropharynx. RESPIRATORY: Clear breath sounds bilaterally. No wheezes, rales, or rhonchi. C/V: Regular rate and rhythm. S1 and S2 auscultated, no edema, peripheral pulses 2+ and intact throughout ABD: Abd is soft, nontender, nondistended EXT: Normal range of motion, no obvious deformity SKIN: No rashes or lesions observed on exposed skin. NEURO: Alert and oriented x 4. GCS of 15. NIH is 1 for mild dysarthria. Last known well was 5:30 PM last night. Limitations: no limitations Course Vital Signs 04/17/24 04/17/24 04/17/24 10:32 11:45 12:00 Temperature 97.4 F L Pulse Rate 56 L 51 L 56 L Respiratory 18 18 18 Rate Blood Pressure 178/69 179/74 171/74 O2 Sat by Pulse 94 L 97 98 Oximetry Medical Decision Making - Medical Decision Making Was pt. sent in by a medical professional or institution (, PA, FORESTRY TREE PRUNER, urgent care, hospital, or shelter...) When possible be specific @ -No Did you speak to anyone other than the patient for history (EMS, parent, family, police, friend...)? What history was obtained from this source @ -Spoke with family who confirms that patient's speech is slightly more slurred at this time. Did you review nursing and triage notes (agree or disagree)? Why? @ -I reviewed and agree with nursing and triage notes Were old charts reviewed (outside hosp., previous admission, EMS record, old EKG, old radiological studies, urgent care reports/EKG's, shelter records)? Report findings @ -Compared today's EKG with prior EKG from October 2022. No obvious acute change. Differential Diagnosis (chest pain, altered mental status, abdominal pain women, abdominal pain men, vaginal bleeding, weakness, fever, dyspnea, syncope, headache, dizziness, GI bleed, back pain, seizure, CVA, palpatations, mental health, musculoskeletal)? @ -Differential CVA Ischemic stroke, hemorrhagic stroke, brain tumor, atypical migraine, Wernicke's encephalopathy, seizure, multiple sclerosis, meningitis, encephalitis, hypoglycemia, Guillain-Caldera, electrolytes disturbance, myasthenia gravis.... This is not meant to be an all-inclusive list EKG interpreted by me (3pts min.). @ -As above X-rays interpreted by me (1pt min.). @ -Chest x-ray reveals no obvious acute cardiopulmonary process CT interpreted by me (1pt min.). @ -CT brain, CT angiogram head and neck reveals no evidence of acute intracranial process or injury. No large vessel occlusion. Less than 50% stenosis at the origin of the bilateral internal carotid arteries from plaques. U/S interpreted by me (1pt. min.). @ -None done What testing was considered but not performed or refused? (CT, X-rays, U/S, labs)? Why? @ -None What meds were considered but not given or refused? Why? @ -Briefly considered tenecteplase however patient is not a thrombolytic candidate as his symptoms are improved, has mild NIH of only 1, and he is outside of the window as he presents greater than 12 hours after onset of symptoms. Risks far outweigh the benefits. Discussed this with the patient as well as family and they expressed understanding were in agreement. Did you discuss the management of the patient with other professionals (professionals i.e. , PA, [employer] T[employer]ER, lab, RT, psych nurse, home health care social worker, communications controller, teacher, international first officer, case making machine operator)? Give summary @ -Discussed with neurocritical care on-call, Dr. Trinidad who was in agreement the plan for stroke workup. Recommended medical management if imaging is negative. Discussed with the admitting provider, Dr. Palumbo who accepted the admission. Was smoking cessation discussed for >3mins.? @ -No Was critical care preformed (if so, how long)? @ -Yes, 36 minutes Were there social determinants of health that impacted care today? How? (Homelessness, low income, unemployed, alcoholism, drug addiction, transportation, low edu. Level, literacy, decrease access to med. care, senior living, rehab)? @ -No Was there de-escalation of care discussed even if they declined (Discuss DNR or withdrawal of care, Hospice)? DNR status @ -No What co-morbidities impacted this encounter? (DM, HTN, Smoking, COPD, CAD, Cancer, CVA, ARF, Chemo, Hep., AIDS, mental health diagnosis, sleep apnea, morbid obesity)? @ -Prior CVA Was patient admitted / discharged? Hospital course, mention meds given and route, prescriptions, significant lab abnormalities, going to OR and other pertinent info. @ -Patient presents as a code stroke activation. He is outside the window for tenecteplase as risks far outweigh the benefits. Last known well was 1730 yeste rday. Patient presents at nearly 1100 today. NIH is only 1. Family and neuro crit care in agreement with plan that thrombolytic therapy is not an option as risks far with benefits and he is outside the window. We will obtain stroke workup. Patient in agreement this plan. Vitals within acceptable limits. Spoke with Dr. Trinidad of neuro crit care who was in agreement with plan for workup. Laboratory studies returned unremarkable. CT imaging negative for any obvious acute process or stroke. Chest x-ray unremarkable. EKG unremarkable. On reevaluation, patient does appear to still be having some mild dysarthria. Patient will be admitted for neurology evaluation. Patient was in agreement this plan. I spoke with Dr. Palumbo who accepted the admission. Undiagnosed new problem with uncertain prognosis? @ -No Drug Therapy requiring intensive monitoring for toxicity (Heparin, Nitro, I nsulin, Cardizem)? @ -No Were any procedures done? @ -No Diagnosis/symptom? @ -CVA Acute, or Chronic, or Acute on Chronic? @ -Acute Uncomplicated (without systemic symptoms) or Complicated (systemic symptoms)? @ -Complicated Side effects of treatment? @ -No Exacerbation, Progression, or Severe Exacerbation? @ -No Poses a threat to life or bodily function? How? (Chest pain, [place], [place], pneumonia, PE, COPD, DKA, ARF, appy, cholecystitis, CVA, Diverticulitis, Homicidal, Suicidal, threat to staff... and all critical care pts) @ -Potentially, yes - Lab Data Result diagrams: 04/17/24 11:10 04/17/24 11:10 Lab Results 04/17/24 04/17/24 04/17/24 Range/Units 11:03 11:10 11:10 WBC 8.8 (3.8-10.6) k/uL RBC 4.76 (4.30-5.90) m/uL Hgb 15.1 (13.0-17.5) gm/dL Hct 44.1 (39.0-53.0) % MCV 92.7 (80.0-100.0) fL MCH 31.8 (25.0-35.0) pg MCHC 34.3 (31.0-37.0) g/dL RDW 12.8 (11.5-15.5) % Plt Count 235 (150-450) k/uL MPV 8.7 Neutrophils % 58 % Lymphocytes % 30 % Monocytes % 6 % Eosinophils % 3 % Basophils % 1 % Neutrophils # 5.1 (1.3-7.7) k/uL Lymphocytes # 2.7 (1.0-4.8) k/uL Monocytes # 0.5 (0-1.0) k/uL Eosinophils # 0.3 (0-0.7) k/uL Basophils # 0.1 (0-0.2) k/uL PT 11.3 (10.0-12.5) sec INR 1.0 (<1.2) APTT 25.1 (22.0-30.0) sec Sodium (137-145) mmol/L Potassium (3.5-5.1) mmol/L Chloride (98-107) mmol/L Carbon Dioxide (22-30) mmol/L Anion Gap mmol/L BUN (9-20) mg/dL Creatinine (0.66-1.25) mg/dL Est GFR (CKD-EPI)AfAm (>60 ml/min/1.73 sqM) Est GFR (CKD-EPI)NonAf (>60 ml/min/1.73 sqM) Glucose (74-99) mg/dL POC Glucose (mg/dL) 117 H (70-110) mg/dL POC Glu Cutting Table Operator First ID Ara [place] Calcium (8.4-10.2) mg/dL Total Bilirubin (0.2-1.3) mg/dL AST (17-59) U/L ALT (4-49) U/L Alkaline Phosphatase (38-126) U/L Creatine Kinase (55-170) U/L Troponin I (0.000-0.034) ng/mL Total Protein (6.3-8.2) g/dL Albumin (3.5-5.0) g/dL 04/17/24 04/17/24 Range/Units 11:10 11:10 WBC (3.8-10.6) k/uL RBC (4.30-5.90) m/uL Hgb (13.0-17.5) gm/dL Hct (39.0-53.0) % MCV (80.0-100.0) fL MCH (25.0-35.0) pg MCHC (31.0-37.0) g/dL RDW (11.5-15.5) % Plt Count (150-450) k/uL MPV Neutrophils % % Lymphocytes % % Monocytes % % Eosinophils % % Basophils % % Neutrophils # (1.3-7.7) k/uL Lymphocytes # (1.0-4.8) k/uL Monocytes # (0-1.0) k/uL Eosinophils # (0-0.7) k/uL Basophils # (0-0.2) k/uL PT (10.0-12.5) sec INR (<1.2) APTT (22.0-30.0) sec Sodium 136 L (137-145) mmol/L Potassium 5.0 (3.5-5.1) mmol/L Chloride 103 (98-107) mmol/L Carbon Dioxide 25 (22-30) mmol/L Anion Gap 8 mmol/L BUN 13 (9-20) mg/dL Creatinine 0.69 (0.66-1.25) mg/dL Est GFR (CKD-EPI)AfAm >90 (>60 ml/min/1.73 sqM) Est GFR (CKD-EPI)NonAf 85 (>60 ml/min/1.73 sqM) Glucose 123 H (74-99) mg/dL POC Glucose (mg/dL) (70-110) mg/dL POC Glu Cutting Table Operator First ID Calcium 9.1 (8.4-10.2) mg/dL Total Bilirubin 2.3 H (0.2-1.3) mg/dL AST 38 (17-59) U/L ALT 18 (4-49) U/L Alkaline Phosphatase 28 L (38-126) U/L Creatine Kinase 65 (55-170) U/L Troponin I <0.012 (0.000-0.034) ng/mL Total Protein 6.6 (6.3-8.2) g/dL Albumin 4.2 (3.5-5.0) g/dL - EKG Data -: EKG Interpreted by Me EKG Comments: 12-lead Electrocardiogram Interpretation Note EKG was reviewed and interpreted by myself. 12-lead ECG performed at 1137 is interpreted by me as revealing sinus bradycardia at a rate of 51 beats per minute. [place] is normal. MD interval is 188 ms, QRS duration is 94 ms, QTc is 448 ms.. There were no ST or T wave abnormalities to suggest myocardial ischemia or injury. R wave progression across the precordium was satisfactory. By my interpretation this EKG is non-diagnostic for acute ischemia. Critical Care Time Critical Care Time: Yes Total Critical Care Time: 36 Disposition Clinical Impression: Cerebrovascular accident (CVA) Disposition: ADMITTED IP TO THIS HOSP Condition: Stable Referrals: Eduar Palumbo MD [Primary Care Provider] - 1-2 days Time of Disposition: 12:45
[2024-04-17] MEDS ORDERED: MECLIZINE 12.5 MG TAB PO PRN (13:08)
[2024-04-17] MEDS ORDERED: ACETAMINOPHEN TAB 500 MG TAB PO PRN (13:08)
[2024-04-17] MEDS: ASPIRIN 325 MG TAB PO STA (13:26)
[2024-04-17 13:51] LABS: Appearance,Urine Clear (Clear); Bilirubin,Urine Negative (Negative); Blood,Urine Negative (Negative); Color,Urine Colorless; Glucose,Urine (UA) Negative (Negative); Ketones,Urine Negative (Negative); Leukocyte Esterase,Urine Negative (Negative); Nitrite,Urine Negative (Negative); Protein,Urine Negative (Negative); Specific Gravity,Urine 1.025 (1.001-1.035); Urobilinogen,Urine <2.0 mg/dL (<2.0)
[2024-04-17] MEDS: LOSARTAN 25 MG TAB PO STA (15:28)
[2024-04-17] MEDS: METOPROLOL TARTRATE 12.5 MG TAB PO SCH (21:29)
[2024-04-17] MEDS: DONEPEZIL 5 MG TAB PO SCH (21:29)
[2024-04-17] MEDS: TAMSULOSIN 0.4 MG CAP.ER.24H PO SCH (21:29)
[2024-04-17] MEDS: ATORVASTATIN 20 MG TAB PO SCH (21:29)
[2024-04-18] MEDS: PANTOPRAZOLE 40 MG TABLET PO SCH (06:18)
[2024-04-18] MEDS: FINASTERIDE 5 MG TAB PO SCH (08:13)
[2024-04-18] MEDS: ACETYLCYSTEINE 800 MG/4 ML VIAL PO SCH (08:13)
[2024-04-18] MEDS: LOSARTAN 25 MG TAB PO SCH (08:14)
[2024-04-18] MEDS: DULoxetine HCL 20 MG CAPSULE.DR PO SCH (08:14)
[2024-04-18] MEDS: ASPIRIN 81 MG PO SCH (08:14)
[2024-04-18] MEDS: MELOXICAM 7.5 MG TAB PO SCH (08:14)
[2024-04-18] MEDS: CLOPIDOGREL 75 MG TAB PO SCH (08:14)
[2024-04-18] MEDS: SYMBICORT 160-4.5 MCG INHALER INHALATION SCH (08:23)
[2024-04-18] MEDS: ALPRAZolam 0.5 MG TAB PO STA (09:28)
--- NOTE | 2024-04-18 10:17 | P.CNNES ---
History of Present Illness Consult date: 04/17/24 Requesting physician: Weston Casillas Reason for Consult: CVA History of Present Illness: Patient is a 88-year-old right-handed male, with history of pontine hemorrhage in 2021, improved significantly, came to the hospital today at 10:30 AM with strokelike symptoms. Patient was able to provide history. Patient states that yesterday evening, he was watching TV. When he stopped watching TV at 10 PM and he started to say something his , and he could not see anything correctly. He wanted to say something about the TV and some nonsensical speech started coming, like saying "sandpaper". This intense speech difficulty lasted for about 30 minutes, improved, and was able to speak, but very slowly and has to choose words carefully. Patient states that normally he has very good dexterity and vocabulary. His daughter, who takes care of him had gone to [place] for a meeting, therefore he did not call her. He went to bed at 11 PM, was still having some difficulty getting words out but improved. He called his daughter this morning at 8:30 AM and she states that he "sounded bad", he was slurring his words, therefore she called her friend, who brought her to the ER. There was no associated other focal symptoms like facial droop, numbness tingling or weakness or any visual disturbance. Vital signs on arrival blood pressure 178/69, pulse rate 56, temperature 97.4. Blood test shows normal CBC PT PTT, sodium 136 normal other electrolytes, renal function, hepatic panel, normal troponin, UA. EKG showed sinus bradycardia, chest x-ray showed no acute cardiopulmonary disease. CT head revealed no acute intracranial process. Nonspecific white matter changes, likely secondary to chronic small vessel ischemic disease. I personally reviewed CT head, agree with the findings. There is moderate cortical atrophy noted. CTA of head and neck revealed no evidence of dissection of the cervical internal carotid arteries or vertebral arteries. Less than 50% stenosis at the origins of the bilateral ICA secondary to calcified plaque. No evidence of high-grade stenosis or intracranial aneurysm. Home medications include Plavix 75 mg, Crestor 10 mg, Proscar, Flomax, meto prolol, donepezil 5 mg, Protonix, co-Q10, Cymbalta 20 mg, meloxicam, meclizine losartan and Celebrex. I spoke to patient's daughter on the phone. She states that patient has been more forgetful lately in the last few months. He will forget within 5 to 30 minutes and is concerned about the possibility of dementia. She has noticed that he has poor judgment, sometimes mixes up. He is caregiver for his . She is concerned about him driving. Patient's daughter also mentions that for past couple months, he has been speaking slowly and sometimes he slurred his words. However this morning was very much pronounced more than his baseline. 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 Patient followed up with Dr. Rivers, and was treated conservatively. Patient states that since this pontine hemorrhage, he has improved, but he loses balance easily, could fall backwards and has been using a cane since then. He states that he did have fallen a couple times. Patient has smoked from age 18 until he quit at age 41. He smoked 1 pack/day for that period of time. Denies any alcohol use. Denies hypertension or diabetes. Patient has history of CABG in 2012. Patient denies any chest pain, any shortness of breath. He does have some dizziness when he gets up fast. He uses cane to move around at night and uses cane quite often. Patient's son has been diagnosed with moyamoya disease. Review of Systems All pertinent positive and negatives mentioned in the HPI. Past Medical History Past Medical History: Coronary Artery Disease (CAD), Chest Pain / Angina, CVA/TIA, Dementia, GERD/Reflux, Hearing Disorder / Deafness, Hyperlipidemia, Hypertension, Osteoarthritis (OA), Prostate Disorder Additional Past Medical History / Comment(s): Other Hx: pericardial effusion, memry impairment mild, vertigo, tinnitis bilateral ears, sinus problems, hemorrhoids, peptic ulcer yrs ago, chronic low back pain and current sciatica to L side. History of Any Multi-Drug Resistant Organisms: None Reported Past Surgical History: Coronary Bypass/CABG, Heart Catheterization With Stent, Hernia Repair, Orthopedic Surgery, Tonsillectomy Additional Past Surgical History / Comment(s): 08-14-15 HEART CATH(FOUND OCCLUSSION TO OM1 INTO OM2 AND DIAG.UNSUCCESSFULL ATTEMP TO STENT 07/17/12 CABG 4 vessel bypass(SIERRA TO LAD,SVG TO OM1 INTO OM2 AND SVG TO DIAG, 08/2012 PCI with stent per pt, right shoulder rotator cuff repair, R inguinal hernia repair, R foot bunionectomy, bilateral cataract removal with lens implants. atherectomy Past Anesthesia/Blood Transfusion Reactions: No Reported Reaction, Motion Sickness Date of Last Stent Placement:: 08/2012 Past Psychological History: No Psychological Hx Reported Additional Psychological History / Comment(s): Pt resides with his spouse. He recently this past week started using a walker to ambulate due to back and R leg pain. He is independent. He drives. Smoking Status: Former smoker Past Alcohol Use History: Occasional Additional Past Alcohol Use History / Comment(s): Pt started smoking in 1954 and quit in 1970. He drinks one glass of wine in the evening. Past Drug Use History: None Reported - Past Family History Father Family Medical History: No Reported History Additional Family Medical History / Comment(s): Pt states his father in his 80's and was a heavy smoker and heavy drinker. Mother Family Medical History: Osteoarthritis (OA), Pulmonary Embolus Additional Family Medical History / Comment(s): Mother had severe arthritis and of a PE at age 61yrs. Medications and Allergies Home Medications Medication Instructions Recorded Confirmed Type Finasteride 5 mg PO DAILY 08/13/15 04/17/24 History Multivit-Min/FA/Lycopen/Lutein 1 tab PO DAILY 08/13/15 04/17/24 History [Centrum Silver Tablet] Nitroglycerin Sl Tabs [Nitrostat] 0.4 mg SUBLINGUAL Q5M PRN 08/13/15 04/17/24 History Tamsulosin HCl 0.8 mg PO HS 08/13/15 04/17/24 History Clopidogrel [Plavix] 75 mg PO DAILY 05/31/16 04/17/24 History Metoprolol Tartrate [Lopressor] 12.5 mg PO BID 05/31/16 04/17/24 History Donepezil [Aricept] 5 mg PO HS 09/02/21 04/17/24 History Pantoprazole Sodium [Protonix] 40 mg PO DAILY 09/02/21 04/17/24 History Acetaminophen Tab [Tylenol Tab] 500 mg PO Q4H PRN 04/17/24 04/17/24 History Acetylcysteine [Nac] 500 mg PO DAILY 04/17/24 04/17/24 History Azelastine HCl [Astepro] 1 mcg EA NOSTRIL QID PRN 04/17/24 04/17/24 History Celecoxib [CeleBREX] 200 mg PO DAILY 04/17/24 04/17/24 History DULoxetine HCL [Cymbalta] 20 mg PO DAILY 04/17/24 04/17/24 History Fluticasone/Vilanterol [Breo 1 puff INHALATION RT-DAILY 04/17/24 04/17/24 History Ellipta 200-25 Mcg Inhaler] Losartan [Cozaar] 25 mg PO DAILY 04/17/24 04/17/24 History Meclizine [Antivert] 12.5 mg PO BID PRN 04/17/24 04/17/24 History Meloxicam [Mobic] 15 mg PO DAILY PRN 04/17/24 04/17/24 History Montelukast [Singulair] 10 mg PO HS 04/17/24 04/17/24 History Rosuvastatin [Crestor] 10 mg PO HS 04/17/24 04/17/24 History Ubidecarenone [Co Q-10] 400 mg PO DAILY 04/17/24 04/17/24 History Allergies Allergy/AdvReac Type Severity Reaction Status Date / Time amoxicillin Allergy Rash/Hives Verified 04/17/24 12:23 Penicillins Allergy Rash/Hives Verified 04/17/24 12:23 Physical Examination - Vital Signs Vital Signs: Vital Signs Temp Pulse Pulse Resp BP BP Pulse Ox 04/17/24 18:07 98 F 55 L 16 154/69 93 L 04/17/24 16:29 58 L 20 178/76 94 L 04/17/24 15:22 51 L 18 187/101 97 04/17/24 14:00 51 L 16 183/78 96 04/17/24 13:30 48 L 16 178/72 95 04/17/24 12:00 56 L 18 171/74 98 04/17/24 11:45 51 L 18 179/74 97 04/17/24 10:32 97.4 F L 56 L 18 178/69 94 L Intake and Output 04/17/24 04/17/24 04/17/24 06:59 14:59 22:59 Intake Total 218 Balance 218 Intake: Oral 218 Other: Weight 90.718 kg 90.718 kg Patient is an elderly male, very pleasant, in no acute distress. Patient is alert awake oriented to time place and person. Patient knows it is April 2024 and that he is in [facility] imported on [place]. Speech and language functions are normal. Patient can name and repeat very well. No aphasia or dysarthria. Attention, concentration and fund of knowledge is adequate. On cranial nerve examination, pupils are equal, round and reacting to light, visual ayers are full on confrontation, with no neglect on double simultaneous stimulation. Extraocular muscles are intact with no nystagmus. Face is symmetric, tongue protrudes to the midline. Palatal elevation and sensation normal, hearing and shoulder shrug normal, facial sensation normal. On muscle strength testing, there is no pronator drift and the strength is normal in arms and legs distally and proximally. Deep tendon reflexes are symmetric but very diminished and plantars downgoing. Sensory to touch is equal with no neglect on double simultaneous stimulation. Cerebellar function showed no ataxia for [id number] testing. No dysdiadochokinesia. No ataxia for [id number] testing on either side. Tone and bulk of muscles normal. Gait deferred.. On general examination, there is no carotid bruit or murmur, S1-S2 audible. Chest is clear on consultation. Abdomen is soft nontender. No organomegaly, bowel sounds present. Peripheral pulses are present. No peripheral edema. Results - Laboratory Findings CBC and BMP: 04/17/24 11:10 04/17/24 11:10 Abnormal Lab Findings: Abnormal Labs 04/17/24 04/17/24 11:03 11:10 Sodium 136 L Glucose 123 H POC Glucose (mg/dL) 117 H Total Bilirubin 2.3 H Alkaline Phosphatase 28 L Assessment and Plan Assessment: * Stroke/TIA, manifesting with expressive aphasia and slurred speech. Symptoms have remarkably improved, but still speaking slightly slowly. 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 Patient has residual balance issues. * Coronary artery disease * Mild cognitive impairment * Hyperlipidemia * Hypertension * Osteoarthritis * Ex tobacco use Plan: Patient came with possible stroke/TIA. Patient not a candidate for tPA, as he came outside the window for tPA and prior history of ICH. MRI of the brain without contrast, evaluate for acute CVA 2-D echo with bubble study to rule out PFO CTA head and neck showed: No evidence of dissection of the cervical internal carotid arteries or vertebral arteries. Less than 50% stenosis at the origin of the bilateral internal carotid arteries, secondary to calcified plaque. No evidence of high-grade stenosis or intracranial aneurysm. Fasting a.m. lipid panel. Continue Lipitor 20 mg. (Patient takes Crestor 10 mg at home) Hemoglobin A1c Permissive hypertension for next 24-48 hours Patient has been taking Plavix 75 mg daily. Patient was given aspirin 325 mg in the ER. We will add aspirin 81 mg daily. Neuro checks every 4 hours. Telemetry monitoring rule out any arrhythmia PT, OT, speech therapy DVT prophylaxis: Heparin 5000 units subcu every 8 hours Neurology will continue to follow. Thank you for the consult.
[2024-04-18 11:00] LABS: Chol/HDL Ratio 2.46 Ratio; LDL Cholesterol,Calculated 70.6 mg/dL (0.0-131.0)
--- NOTE | 2024-04-18 11:11 | MR ---
EXAMINATION TYPE: MR brain wo con DATE OF EXAM: 04/18/2024 COMPARISON: 11/13/2021 HISTORY: CVA TECHNIQUE: T1-weighted sagittal, T2, FLAIR, and diffusion axial, and T2 coronal coronal views of the brain are submitted. FINDINGS: There is no evidence of acute ischemia. Moderate degenerative change. There is diffuse and focal area s of abnormal signal throughout the white matter most typical remote like microvascular ischemia. Changes of chronic left mastoiditis and mild sinusitis with nasal septal deviation. Orbits are symmet serene. Abnormal signal in the magdalena most typical of remote ischemia. Craniocervical junction maintained. Sella turcica has a normal appearance. IMPRESSION: 1. No acute intracranial process. 2. Degenerative and remote ischemic changes. [facility], , 04/18/2024 11:09 AM
--- NOTE | 2024-04-18 14:32 | CA ---
Transthoracic Echo Report Name: Eduar Dias Age: 88 Gender: M : 1935 Exam Date: 04/18/2024 08:33 Exam Location: [facility] Ht (in): 62 Wt (lb): 200 Ordering Physician: Ana aLo MD Attending/Referring Phys: [employer] Deck[employer] Frances Ludwig RDCS Procedure CPT: Indications: CVA Cardiac Hx: CABG Technical Quality: Fair Contrast 1: Total Dose (mL): Contrast 2: Total Dose (mL): MEASUREMENTS (Male / Female) Normal Values 2D ECHO LV Diastolic Diameter PLAX 3.7 cm 4.2 - 5.9 / 3.9 - 5.3 cm LV Systolic Diameter PLAX 3.1 cm IVS Diastolic Thickness 1.2 cm 0.6 - 1.0 / 0.6 - 0.9 cm LVPW Diastolic Thickness 1.7 cm 0.6 - 1.0 / 0.6 - 0.9 cm LV Relative Wall Thickness 0.8 RV Internal Dim ED PLAX 2.7 cm LVOT Diameter 1.9 cm LA Systolic Diameter LX 4.6 cm 3.0 - 4.0 / 2.7 - 3.8 cm LV Diastolic Volume MOD BP 52.8 cm??? 67 - 155 / 56 - 104 cm??? LV Systolic Volume MOD BP 15.1 cm??? - 58 / 19 - 49 cm??? LV Ejection Fraction MOD BP 71.4 % >= 55 % LV Cardiac Index MOD BP 1091.7 cm???/min???m??? LV Diastolic Volume MOD 4C 60.7 cm??? LV Systolic Volume MOD 4C 17.7 cm??? LV Ejection Fraction MOD 4C 70.8 % LV Cardiac Index MOD 4C 1245.7 cm???/min???m??? LV Diastolic Length 4C 6.9 cm LV Systolic Length 4C 5.9 cm LV Diastolic Volume MOD 2C 46.1 cm??? LV Systolic Volume MOD 2C 12.1 cm??? LV Ejection Fraction MOD 2C 73.7 % LV Cardiac Index MOD 2C 983.5 cm???/min???m??? LV Diastolic Length 2C 7.2 cm LV Systolic Length 2C 5.4 cm LA Volume 70.4 cm??? 18 - 58 / 22 - 52 cm??? LA Volume Index 34.6 cm???/m??? 16 - 28 cm???/m??? M-MODE Aortic Root Diameter MM 3.3 cm LA Systolic Diameter MM 4.5 cm LA Ao Ratio MM 1.3 AV Cusp Separation MM 1.2 cm DOPPLER AV Peak Velocity 218.9 cm/s AV Peak Gradient 19.2 mmHg AV Mean Velocity 142.6 cm/s AV Mean Gradient 9.4 mmHg AV Velocity Time Integral 47.7 cm AI Peak Velocity 433.4 cm/s AI Peak Gradient 75.1 mmHg AI Pressure Half Time 829.0 ms LVOT Peak Velocity 120.5 cm/s LVOT Peak Gradient 5.8 mmHg LVOT Velocity Time Integral 31.4 cm LVOT Stroke Volume 89.1 cm??? LVOT Stroke Volume Index 46.6 ml/m??? LVOT Cardiac Index 2582.4 cm???/min???m??? AV Area Cont Eq vti 1.9 cm??? AV Area Cont Eq pk 1.6 cm??? MV Area PHT 2.2 cm??? Mitral E Point Velocity 83.0 cm/s Mitral A Point Velocity 84.1 cm/s Mitral E to A Ratio 1.0 MV Deceleration Time 342.1 ms TR Peak Velocity 305.9 cm/s TR Peak Gradient 37.4 mmHg Right Ventricular Systolic Press 41.8 mmHg FINDINGS Left Ventricle Left ventricular ejection fraction is estimated at 55-60%. Mildly increased septal wall thickness. Normal left ventricular systolic function with no obvious regional wall motion abnormalities. Left ventricular cavity size normal. Right Ventricle Normal right ventricular size and function. Mild pulmonary hypertension. Right Atrium Moderate right atrial dilatation. Left Atrium Mildly increased left atrial diameter. Moderately increased left atrial volume. Mildly increased left atrial area. Mitral Valve Structurally normal mitral valve. Mild mitral regurgitation. No mitral stenosis. Aortic Valve Trileaflet aortic valve. Mild aortic stenosis with a peak gradient of 19mmHg and a mean gradient of 9.4mmHg. [id number] aortic regurgitation. Tricuspid Valve Structurally normal tricuspid valve. No tricuspid stenosis. Moderate tricuspid regurgitation. Pulmonic Valve Structurally normal pulmonic valve. Trace pulmonic regurgitation. No pulmonic stenosis. Pericardium No pericardial or pleural effusion. Aorta Normal size aortic root and proximal ascending aorta. CONCLUSIONS Left ventricular ejection fraction 55-60% RVSP 41 Mild to moderately dilated left atrium Mild mitral regurgitation Mild aortic stenosis Mild to moderate aortic regurgitation Moderate tricuspid regurgitation Previewed by: Dr. Aleksander Kurtz DO (Electronically Signed) Final Date: 18 April 2024 14:31
--- NOTE | 2024-04-18 15:34 | P.HPIM ---
History of Present Illness H&P Date: 04/18/24 This is a pleasant 88-year-old gentleman who resides at [facility] with his , with past medical history significant for left magdalena hemorrhage CVA in August 2021 on aspirin and Plavix, CAD, history of CABG , hypertension, hyperlipidemia, dementia, osteoarthritis, prostate disorder, claustrophobia ,multiple other medical issues presented to the ER with slurred speech, expressive aphasia that began around 10 PM while watching TV. Reports by 11 PM he could speak "slowly and organize his words". Proceeded to bed, upon awakening in the morning mild symptoms persisted including slurred speech and proceeded to the ER yesterday. Last known well 5:30 PM. denies headache. Denies numbness or tingling of his face tongue hands. Denies headache. Denies chest pain. Denies fever or chills. Denies falls or trauma . Patient states it is common for him to be dizzy upon standing up, if done too rapidly. patient reports gait dysfunction since his prior CVA, uses a cane, denies worsening states at baseline. denies dehydration, reports he drinks water regularly throughout the day. On admission hypertensive with systolic blood pressure in the 170s. Afebrile brain CT reported no acute intracranial process ,CTA reported no evidence of dissection of the cervical internal carotid arteries or vertebral arteries, less than 50% stenosis of the origins of the bilateral internal carotid artery secondary to calcified plaque, no evidence of high-grade stenosis or intracranial aneurysm .EKG reported sinus bradycardia, troponin negative x 1. chest x-ray reported nonacute. Hematology, coagulation and chemistry panels unremarkable with the exception of T. bili 2.3, alk phos 28, blood sugars controlled, hemoglobin A1c 6.1. Lipid panel pending. UA negative. Review of Systems ROS Statement: Those systems with pertinent positive or pertinent negative responses have been documented in the HPI. ROS Other: All systems not noted in ROS Statement are negative. Past Medical History Past Medical History: Coronary Artery Disease (CAD), Chest Pain / Angina, CVA/TIA, Dementia, GERD/Reflux, Hearing Disorder / Deafness, Hyperlipidemia, Hypertension, Osteoarthritis (OA), Prostate Disorder Additional Past Medical History / Comment(s): Other Hx: pericardial effusion, memry impairment mild, vertigo, tinnitis bilateral ears, sinus problems, hemorrhoids, peptic ulcer yrs ago, chronic low back pain and current sciatica to L side. History of Any Multi-Drug Resistant Organisms: None Reported Past Surgical History: Coronary Bypass/CABG, Heart Catheterization With Stent, Hernia Repair, Orthopedic Surgery, Tonsillectomy Additional Past Surgical History / Comment(s): 08-14-15 HEART CATH(FOUND OCCLUSSION TO OM1 INTO OM2 AND DIAG.UNSUCCESSFULL ATTEMP TO STENT 07/17/12 CABG 4 vessel bypass(SIERRA TO LAD,SVG TO OM1 INTO OM2 AND SVG TO DIAG, 08/2012 PCI with stent per pt, right shoulder rotator cuff repair, R inguinal hernia repair, R foot bunionectomy, bilateral cataract removal with lens implants. atherectomy Past Anesthesia/Blood Transfusion Reactions: No Reported Reaction, Motion Sickness Date of Last Stent Placement:: 08/2012 Past Psychological History: No Psychological Hx Reported Additional Psychological History / Comment(s): Pt resides with his spouse. He recently this past week started using a walker to ambulate due to back and R leg pain. He is independent. He drives. Smoking Status: Former smoker Past Alcohol Use History: Occasional Additional Past Alcohol Use History / Comment(s): Pt started smoking in 1954 and quit in 1970. He drinks one glass of wine in the evening. Past Drug Use History: None Reported - Past Family History Father Family Medical History: No Reported History Additional Family Medical History / Comment(s): Pt states his father in his 80's and was a heavy smoker and heavy drinker. Mother Family Medical History: Osteoarthritis (OA), Pulmonary Embolus Additional Family Medical History / Comment(s): Mother had severe arthritis and of a PE at age 61yrs. Medications and Allergies Home Medications Medication Instructions Recorded Confirmed Type Finasteride 5 mg PO DAILY 08/13/15 04/17/24 History Multivit-Min/FA/Lycopen/Lutein 1 tab PO DAILY 08/13/15 04/17/24 History [Centrum Silver Tablet] Nitroglycerin Sl Tabs [Nitrostat] 0.4 mg SUBLINGUAL Q5M PRN 08/13/15 04/17/24 History Tamsulosin HCl 0.8 mg PO HS 08/13/15 04/17/24 History Clopidogrel [Plavix] 75 mg PO DAILY 05/31/16 04/17/24 History Metoprolol Tartrate [Lopressor] 12.5 mg PO BID 05/31/16 04/17/24 History Donepezil [Aricept] 5 mg PO HS 09/02/21 04/17/24 History Pantoprazole Sodium [Protonix] 40 mg PO DAILY 09/02/21 04/17/24 History Acetaminophen Tab [Tylenol Tab] 500 mg PO Q4H PRN 04/17/24 04/17/24 History Acetylcysteine [Nac] 500 mg PO DAILY 04/17/24 04/17/24 History Azelastine HCl [Astepro] 1 mcg EA NOSTRIL QID PRN 04/17/24 04/17/24 History Celecoxib [CeleBREX] 200 mg PO DAILY 04/17/24 04/17/24 History DULoxetine HCL [Cymbalta] 20 mg PO DAILY 04/17/24 04/17/24 History Fluticasone/Vilanterol [Breo 1 puff INHALATION RT-DAILY 04/17/24 04/17/24 History Ellipta 200-25 Mcg Inhaler] Losartan [Cozaar] 25 mg PO DAILY 04/17/24 04/17/24 History Meclizine [Antivert] 12.5 mg PO BID PRN 04/17/24 04/17/24 History Meloxicam [Mobic] 15 mg PO DAILY PRN 04/17/24 04/17/24 History Montelukast [Singulair] 10 mg PO HS 04/17/24 04/17/24 History Rosuvastatin [Crestor] 10 mg PO HS 04/17/24 04/17/24 History Ubidecarenone [Co Q-10] 400 mg PO DAILY 04/17/24 04/17/24 History Allergies Allergy/AdvReac Type Severity Reaction Status Date / Time amoxicillin Allergy Rash/Hives Verified 04/17/24 12:23 Penicillins Allergy Rash/Hives Verified 04/17/24 12:23 Physical Exam Vitals: Vital Signs Temp Pulse Pulse Resp BP BP Pulse Ox 04/18/24 13:14 58 L 04/18/24 11:26 58 L 20 141/57 95 04/18/24 08:05 97.7 F 60 20 150/84 93 L 04/18/24 04:00 97.9 F 59 L 16 144/52 93 L 04/18/24 02:00 16 04/18/24 00:00 56 L 16 159/66 94 L 04/17/24 20:00 97.8 F 57 L 16 151/55 93 L 04/17/24 18:07 98 F 55 L 16 154/69 93 L 04/17/24 16:29 58 L 20 178/76 94 L 04/17/24 15:22 51 L 18 187/101 97 Intake and Output 04/17/24 04/18/24 04/18/24 22:59 06:59 14:59 Intake Total 218 120 Balance 218 120 Intake: Oral 218 120 Other: Voiding Method Toilet Toilet Toilet # Voids 2 1 Weight 90.718 kg 90.1 kg 90.1 kg PHYSICAL EXAM: VITAL SIGNS: [Reviewed] GENERAL: Pleasant, alert and oriented x 3, sitting up in bed, no acute distress. Speech slightly slow, nonslurred, appropriate. HEENT: Normocephalic, atraumatic conjunctivae normal. eyes normal. Tongue midline, no facial droop NECK: Supple, no JVD. No thyroid enlargement. No LNs. CARDIOVASCULAR: S1, S2 regular. No murmur RESPIRATION: Labored, equal air entry, clear to auscultation. ABDOMEN: Soft, nondistended, nontender . No guarding. no masses palpable. No ascites, No hepatosplenomegaly.Bowel sounds heard. LEGS: No edema. no swelling NERVOUS SYSTEM: Cranial N 2-12 grossly normal.No focal deficits. Strength and sensation grossly intact. No ataxia, no limb weakness. Skin: Warm and dry no rash Results CBC & Chem 7: 04/17/24 11:10 04/17/24 11:10 Labs: Abnormal Lab Results - Last 24 Hours (Table) 04/18/24 04/18/24 Range/Units 06:53 06:53 Hemoglobin A1c 6.1 H (<=6.0) % HDL Cholesterol 63.40 H (40.00-60.00) mg/dL Assessment and Plan Assessment: Expressive aphasia, slurred speech, significant improvement, ruling out CVA/TIA, arrhythmia. History of left lea hemorrhage CVA, 09/21 History of dementia CAD, history of CABG Essential hypertension Hyperlipidemia Prior nicotine dependence Osteoarthritis Gait dysfunction, uses a cane Obesity, BMI 36 Plan: Continue on current medication regimen ,monitoring and symptomatic treatment. Continue statin, Plavix, aspirin. neurochecks, continuous telemetry monitoring as ordered .neurology consult in place, neurology workup in progress/MRI pending. PT/OT/ST. The impression and plan of care has been dictated as directed. : I performed a history and examination of this patient, discussed the same with the dictator. I agree with the dictator's note ,documented as a scribe. Any additional findings or plans will be noted.
[2024-04-19 07:53] VITALS: RESP 18
[2024-04-19 11:12] VITALS: BP 155/70; PULSE 57; TEMP 97.4
--- NOTE | 2024-04-19 12:13 | P.PN ---
Subjective Progress Note Date: 04/18/24 Patient was seen for follow-up. Patient is laying in the bed, offers no new complaints. Objective - Vital Signs Vital signs: Vital Signs Temp 97.7 F 04/18/24 08:05 Pulse 58 L 04/18/24 13:14 Resp 20 04/18/24 11:26 BP 141/57 04/18/24 11:26 Pulse Ox 95 04/18/24 11:26 FiO2 Intake & Output 04/17/24 04/18/24 04/18/24 18:59 06:59 18:59 Intake Total 218 120 Balance 218 120 Weight 90.718 kg 90.1 kg 90.1 kg Intake: Oral 218 120 Other: Voiding Method Toilet Toilet # Voids 2 1 - Exam Examination is unchanged. - Labs CBC & Chem 7: 04/17/24 11:10 04/17/24 11:10 Labs: Abnormal Lab Results - Last 24 Hours (Table) 04/18/24 04/18/24 Range/Units 06:53 06:53 Hemoglobin A1c 6.1 H (<=6.0) % HDL Cholesterol 63.40 H (40.00-60.00) mg/dL Assessment and Plan Assessment: * Probable TIA, manifesting with expressive aphasia and slurred speech. All deficits resolved. MRI brain negative. 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 Patient has residual balance issues. * Coronary artery disease * Mild cognitive impairment * Hyperlipidemia * Hypertension * Osteoarthritis * Ex tobacco use Plan: Patient came with possible stroke/TIA. Patient not a candidate for tPA, as he came outside the window for tPA and prior history of ICH. MRI of the brain without contrast, revealed no acute intracranial process. Degenerative and remote ischemic changes. 2-D echo revealed LVEF 55 to 60%. Mildly increased septal wall thickness. No obvious regional wall motion abnormalities. Mildly increased left atrial diameter. Mild to moderate AR. CTA head and neck showed: No evidence of dissection of the cervical internal carotid arteries or vertebral arteries. Less than 50% stenosis at the origin of the bilateral internal carotid arteries, secondary to calcified plaque. No evidence of high-grade stenosis or intracranial aneurysm. Fasting a.m. lipid panel with cholesterol 156, LDL 70.6, HDL 63 and triglycerides 110. Continue Lipitor 20 mg. (Patient takes Crestor 10 mg at home) Hemoglobin A1c 6.1, recommend healthy lifestyles, and dietary adjustment. Optimize control of blood pressure. Patient has been taking Plavix 75 mg daily. Patient was given aspirin 325 mg in the ER. We will add aspirin 81 mg daily. Neuro checks every 4 hours. Telemetry monitoring rule out any arrhythmia DVT prophylaxis: Heparin 5000 units subcu every 8 hours Neurologically clear for discharge.
== END 2024-04-19 12:09 | disposition home health service (06) | DRG 69 ==
LOC: EC 10:30 → 3SCARD 13:07
PROVIDERS: ADMIT Family Medicine; ATTEND Family Medicine
DX: G45.9 Transient cerebral ischemic attack, unspecified (principal); R47.01 Aphasia; F03.90 Unspecified dementia, unspecified severity, without behavioral disturbance, psychotic disturbance, mood disturbance, and anxiety; E66.9 Obesity, unspecified; I10 Essential (primary) hypertension; Z68.36 Body mass index [BMI] 36.0-36.9, adult; R47.1 Dysarthria and anarthria; R26.89 Other abnormalities of gait and mobility; M19.90 Unspecified osteoarthritis, unspecified site; I25.10 Atherosclerotic heart disease of native coronary artery without angina pectoris; E78.5 Hyperlipidemia, unspecified; H91.90 Unspecified hearing loss, unspecified ear; I69.298 Other sequelae of other nontraumatic intracranial hemorrhage; Z79.02 Long term (current) use of antithrombotics/antiplatelets; Z95.1 Presence of aortocoronary bypass graft; Z95.5 Presence of coronary angioplasty implant and graft; Z87.11 Personal history of peptic ulcer disease; Z87.891 Personal history of nicotine dependence; Z79.1 Long term (current) use of non-steroidal anti-inflammatories (NSAID); Z79.899 Other long term (current) drug therapy; Z79.82 Long term (current) use of aspirin
CPT/HCPCS: 36415; 70450; 70496; 70498; 70551; 71046; 80053; 80061; 81003; 82550; 82607; 82746; 83036; 84484; 85025; 85610; 85730; 93005; 93306; 94640; 96360; 96361; 99291